=== PATIENT | male | born 1980 | race Caucasian/White ===

== ENCOUNTER 2018-08-31 21:58 | Emergency (ER) | payer SELFPAY ==
[~2018-08-31] VITALS: Ht 170.2 cm; Wt 95.0 kg
[2018-09-01 07:21] VITALS: BP 115/76
== END 2018-09-01 07:23 | disposition home or self-care (01) ==
LOC: ER 09-01 07:03
DX: Z76.0 Encounter for issue of repeat prescription (principal); I10 Essential (primary) hypertension
CPT/HCPCS: 99283; Z7610